=== PATIENT | female | born 2005 | race Two or more races ===

== ENCOUNTER 2025-05-28 19:21 | Emergency (ER) | payer MEDICAID, SELFPAY ==
[2025-05-28 19:39] VITALS: BP 126/86; PULSE 91; RESP 18; TEMP 36.8; O2SAT 99
--- NOTE | 2025-05-28 19:49 | EDNOTE_ITS ---
ED Allergic Reaction RME/HPI General Chief complaint: Allergic Reaction Stated complaint: itchy rash all over Time Seen by Provider: 05/28/25 19:23 Arrival date/time: 05/28/25 19:21 This is a case of a 19-year-old female who came in the emergency room due to generalized urticarial rashes on his neck chest abdomen back both upper extremities and both lower extremities for 2 days patient took Benadryl but no relief due to worsening of the symptoms this patient decided to sought consult here in the emergency room denies any shortness of breath no swelling of the face or throat Limitations: no limitations Related Data Previous Rx's ?Medication ?Instructions ?Recorded azithromycin 250 mg tablet See Rx Instructions PO .COM PLEX #6 12/27/19 tabs ibuprofen 400 mg tablet 400 mg PO Q6H PRN fever or p ain 12/27/19 #10 tabs diphenhydramine HCl 25 mg capsule 25 mg PO TID PRN all ergic reaction 05/28/25 (Benadryl) #20 caps famotidine 20 mg tablet 20 mg PO BID 5 days #10 tabs 05/28/25 prednisone 20 mg tablet See Taper PO QDAY 5 days #5 tabs 05/28/25 Allergies Allergy/AdvReac Type Severity Reaction Status Date / Time No Known Allergies Allergy Verified 05/28/25 19:26 Review of Systems Review of Systems Systems Reviewed: All systems reviewed, normal except as documented Constitutional Constitutional: Reports system reviewed and no additional complaints, except as documented and Reports as per HPI ENT Ears, Nose, Mouth, and Throat: Reports system reviewed and no additional complaints, except as documented and Reports as per HPI Cardiovascular Cardiovascular: Reports system reviewed and no additional complaints, except as documented and Reports as per HPI Respiratory Respiratory: Reports system reviewed and no additional complaints, except as documented and Reports as per HPI Gastrointestinal Gastrointestinal: Reports system reviewed and no additional complaints, except as documented and Reports as per HPI Genitourinary Genitourinary: Reports system reviewed and no additional complaints, except as documented and Reports as per HPI Musculoskeletal Musculoskeletal: Reports system reviewed and no additional complaints, except as documented and Reports as per HPI Integumentary/Breasts Skin/Breast: Reports other (Rash) Neurologic Neurologic: Reports system reviewed and no additional complaints, except as documented and Reports as per HPI Past Medical History Past Medical History NEUROLOGIC: Negative Seizures CARDIAC: Negative Cardiac Disorders or Congestive Heart Failure RESPIRATORY: Negative Chronic Obstructive Pulmonary Disease (COPD) or Asthma GENITOURINARY: Negative Renal Disease ENDOCRINE: Negative Diabetes Mellitus Type 1 or Diabetes Mellitus Type 2 HEMATOLOGIC: Negative Sickle Cell Disease OTHER HISTORY: Negative Blood Transfusions, Blood Transfusion Reaction or Anesthesia Reactions Social History SMOKING STATUS: Never smoker SECOND HAND EXPOSURE: No SUBSTANCE USE: does not use ED Exam General Limitations: Present no limitations General appearance: Present alert and in no apparent distress Head Head exam: Present atraumatic, normocephalic and normal inspection Eye Eye exam: Present normal appearance, PERRL and EOMI ENT ENT exam: Present normal exam, normal oropharynx, mucous membranes moist and other (HEENT exam is normal no drooling of saliva no facial or throat swelling) Neck Neck exam: Present normal inspection, full ROM and trachea midline; Absent tenderness, meningismus, lymphadenopathy or thyromegaly Chest Chest inspection: Present normal inspection, symmetric chest wall rise and rash; Absent tenderness or abscess Respiratory Respiratory exam: Present normal lung sounds bilaterally; Absent respiratory distress, wheezes, stridor, accessory muscle use or prolonged expiratory phase Cardiovascular Cardiovascular exam: Present regular rate, normal rhythm and normal heart sounds; Absent bradycardia, tachycardia, irregular rhythm, systolic murmur or diastolic murmur Abdominal Exam Abdominal exam: Present soft and normal bowel sounds; Absent distention, tenderness, guarding, rebound or rigidity Extremities Exam Extremities exam: Present normal inspection and full ROM Back Exam Back exam: Present normal inspection and full ROM Neurological Exam Neurological exam: Present alert, oriented X3, CN II-XII intact, normal gait and reflexes normal; Absent motor sensory deficit Psychiatric Psychiatric exam: Present normal affect and normal mood Skin Skin exam: Present warm, dry, intact, normal color and other (Noted a urticarial generalized rash chest on chest abdomen back both upper extremities both lower extremities no cellulitis no abscess nonblanching rash) Course Quality Measures none Orders Category Date Time Status Dexamethasone Inj [Decadron Inj] Med 05/28/25 19:43 Discontinued 10 mg IM X1 ONE DiphenhydrAMINE INJ [Benadryl Inj] Med 05/28/25 19:43 Discontinued 25 mg IM X1 ONE Famotidine [Pepcid] Med 05/28/25 19:43 Discontinued 40 mg PO X1 ONE Vital Signs Vital signs: Vital Signs Temperature 98.2 F 05/28/25 19:39 Pulse Rate 91 05/28/25 19:39 Respiratory Rate 18 05/28/25 19:39 Blood Pressure 126/86 H 05/28/25 19:39 Pulse Oximetry (%) 99 05/28/25 19:39 Oxygen Delivery Method Room Air 05/28/25 19:39 Oxygen saturation is 99% in room Allergic Reaction MDM Narrative MDM Narrative:: This is a case of a 19-year-old female who came in the emergency room due to generalized urticarial rashes on his neck chest abdomen back both upper extremities and both lower extremities for 2 days patient took Benadryl but no relief due to worsening of the symptoms this patient decided to sought consult here in the emergency room denies any shortness of breath no swelling of the face or throat physical examination patient is awake alert oriented not in distress nontoxic looking afebrile not tachycardic not tachypneic not hypoxic lungs sound is clear no crackles no rales no retraction no stridor HEENT exam is normal and unremarkable no throat or facial swelling no drooling of saliva skin exam showed Noted a urticarial generalized rash chest on chest abdomen back both upper extremities both lower extremities no cellulitis no abscess nonblanching rash at the time of exam no signs and symptoms of angioedema or anaphylaxis patient was given Benadryl dexamethasone and Pepcid for allergy cocktail patient condition markedly improved patient was observed for 30 minutes after 30 minutes rash is subsided no shortness of breath no facial or throat swelling patient will be discharged home in stable condition she was informed to follow-up with PCP to be referred to military equipment specialist for allergy testing and beam machine operator if symptoms persist for any recurrence persistent worsening symptoms she will return in the emergency room immediately or call 911 patient was prescribed with prednisone Pepcid and Benadryl Patient was discharged with comfortable condition walking with stable gait. Patient verbalized no further complains explained diagnosis and answered patient question. Patient is comfortable with the proposed management plan including the need to follow up with his/her primary care physician and any specialist if applicable Discussed patient for any urgent condition or worsening sx, He/She needed to go to emergency room immediately or call 911. Patient acknowledge the responsibility to follow up as instructed and to monitor her/his symptoms. For any persistence of the symptoms for more than 3-5 days return precaution advised. Discussed the result of the test and was given printed discharge instruction Patient data External records reviewed:: [facility] previous records Clinical information provided by:: patient Social determinants that could affect healthcare access:: none Patient has the following chronic illnesses:: None How is presenting disease/condition affected by chronic disease/condition?: no chronic disease Evaluation data The following diagnostics were reviewed and interpreted by me:: other (specify) Lab and/or radiology exams considered but not ordered:: None Interpretation Summary: None Medications / Prescriptions Medications or Prescriptions considered but not ordered:: Given Medication administrations:: Medication Administration History Discontinued Medications Dexamethasone Sodium Phosphate (Dexamethasone Sod Phos Inj 10 Mg/Ml Vial) 10 mg IM X1 ONE Stop: 05/28/25 19:44 Diphenhydramine HCl (Diphenhydramine Inj 50 Mg/Ml Vial) 25 mg IM X1 ONE Stop: 05/28/25 19:44 Famotidine (Famotidine 20 Mg Tablet) 40 mg PO X1 ONE Stop: 05/28/25 19:44 Given Consultations Consultation(s) initiated? (list below): No Diagnosis Differential Diagnosis allergic reaction: allergic reaction and contact dermatitis Most likely diagnosis given after review of the tests above:: Allergic urticaria Admission Indicated Admission indicated?: not indicated Explain why admission is indicated or not indicated:: Not indicated Admission Request Was there a request for admission?: No Admission Attestation Admission request attestation: Not indicated Disposition Plan Disposition Plan: Discharge Discharge Attestation Discharge Attestation: The patient and all family members were given an opportunity to ask questions and understood the discharge instructions. Discharge instructions specifically effects, indications for sooner follow up or return to the emergency department, and the expected course of current diagnosis. Patient condition: Stable Discharge Plan Plan Patient Disposition: HOME (Self Care) Patient condition on transfer: Stable Prescriptions/Referrals Prescriptions/Med Rec: New diphenhydramine HCl [Benadryl] 25 mg capsule 25 mg PO TID PRN (Reason: allergic reaction) Qty: 20 0RF prednisone 20 mg tablet See Taper PO QDAY 5 Days Qty: 5 0RF Taper: Prednisone Taper 20 mg DAILY for 2 Days and 0 Hour 10 mg DAILY for 2 Days and 0 Hour 5 mg DAILY for 7 Days and 0 Hour famotidine 20 mg tablet 20 mg PO BID 5 Days Qty: 10 0RF No Action azithromycin 250 mg tablet See Rx Instructions .ROUTE .COMPLEX Qty: 6 0RF Rx Instructions: take 500 mg today (day 1), then 250 mg for 4 days (days 2-5) ibuprofen 400 mg tablet 400 mg PO Q6H PRN (Reason: fever or pain) Qty: 10 0RF Problem List Clinical Impression: Allergic urticaria Patient/Caregiver Discharge Instructions Education Materials: ED Hives (Adult) Additional Instructions: Follow-up with your primary care physician in 2 days for reevaluation and to be referred to military equipment specialist for allergy testing and if there is recurrent persistent rash need to be referred also to a beam machine operator for further evaluation and treatment recurrent persistent worsening symptoms or any emergent concern return to the emergency room immediately or call 911 take your medication as directed use hypoallergenic soap and hypoallergenic laundry soap is advised Print Language: Icelandic Stand Alone Forms: [employer] Award Info., Patient Portal Info Letter JESUS/DENEEN Supervising Physician JESUS/DENEEN Supervising Physician: dr nieves
[2025-05-28] MEDS: FAMOTIDINE 20 MG TABLET 40 MG PO (20:02)
[2025-05-28] MEDS: DEXAMETHASONE SOD PHOS INJ 10 MG/ML VIAL IM (20:02)
== END 2025-05-28 20:23 | disposition home or self-care (01) ==
LOC: SERX 20:01
PROVIDERS: Emergency Provider Emergency Medicine; PCP Family Medicine
DX: L50.0 Allergic urticaria (principal)
CPT/HCPCS: 96372; 99283; J1100; J1200; A9270

== ENCOUNTER 2025-05-29 23:31 | Emergency (ER) | payer MEDICAID, SELFPAY ==
[2025-05-29 23:32] VITALS: BMI 25.6
[2025-05-29 23:34] VITALS: BP 115/76; PULSE 102; RESP 19; TEMP 36.8; O2SAT 97
--- NOTE | 2025-05-29 23:55 | EDNOTE_ITS ---
ED Allergic Reaction RME/HPI General Chief complaint: Allergic Reaction Stated complaint: ALLERGIC REACTION Time Seen by Provider: 05/29/25 23:50 Source: patient and family Arrival date/time: 05/29/25 23:31 This is a case of a 19-year-old female who came into the emergency room due to generalized urticarial rashes today patient was seen here with the same symptoms and was given Benadryl dexamethasone and Pepcid which condition of the patient improved mother states that they were not able to get the medication that was prescribed yesterday recurrence of the symptoms this patient mother decided to bring patient here in the emergency room Limitations: no limitations Related Data Previous Rx's ?Medication ?Instructions ?Recorded azithromycin 250 mg tablet See Rx Instructions PO .COM PLEX #6 12/27/19 tabs ibuprofen 400 mg tablet 400 mg PO Q6H PRN fever or p ain 12/27/19 #10 tabs diphenhydramine HCl 25 mg capsule 25 mg PO TID PRN all ergic reaction 05/28/25 (Benadryl) #20 caps famotidine 20 mg tablet 20 mg PO BID 5 days #10 tabs 05/28/25 prednisone 20 mg tablet See Taper PO QDAY 5 days #5 tabs 05/28/25 Allergies Allergy/AdvReac Type Severity Reaction Status Date / Time No Known Allergies Allergy Verified 05/29/25 23:36 Review of Systems Review of Systems Systems Reviewed: All systems reviewed, normal except as documented Constitutional Constitutional: Reports system reviewed and no additional complaints, except as documented and Reports as per HPI Cardiovascular Cardiovascular: Reports system reviewed and no additional complaints, except as documented and Reports as per HPI Respiratory Respiratory: Reports system reviewed and no additional complaints, except as documented and Reports as per HPI Musculoskeletal Musculoskeletal: Reports system reviewed and no additional complaints, except as documented and Reports as per HPI Integumentary/Breasts Skin/Breast: Reports other (Rash) Neurologic Neurologic: Reports system reviewed and no additional complaints, except as documented and Reports as per HPI Past Medical History Past Medical History NEUROLOGIC: Negative Seizures CARDIAC: Negative Cardiac Disorders or Congestive Heart Failure RESPIRATORY: Negative Chronic Obstructive Pulmonary Disease (COPD) or Asthma GENITOURINARY: Negative Renal Disease ENDOCRINE: Negative Diabetes Mellitus Type 1 or Diabetes Mellitus Type 2 HEMATOLOGIC: Negative Sickle Cell Disease OTHER HISTORY: Negative Blood Transfusions, Blood Transfusion Reaction or Anesthesia Reactions Social History SMOKING STATUS: Never smoker SECOND HAND EXPOSURE: No SUBSTANCE USE: does not use ED Exam General Limitations: Present no limitations General appearance: Present alert and in no apparent distress Head Head exam: Present atraumatic Eye Eye exam: Present normal appearance, PERRL and EOMI ENT ENT exam: Present normal exam, normal oropharynx and mucous membranes moist Neck Neck exam: Present normal inspection, full ROM and trachea midline Chest Chest inspection: Present normal inspection and symmetric chest wall rise; Absent tenderness, rash or abscess Respiratory Respiratory exam: Present normal lung sounds bilaterally; Absent respiratory distress, wheezes, stridor, accessory muscle use or prolonged expiratory phase Cardiovascular Cardiovascular exam: Present regular rate, normal rhythm and normal heart sounds; Absent bradycardia, tachycardia, irregular rhythm, systolic murmur or diastolic murmur Abdominal Exam Abdominal exam: Present soft and normal bowel sounds Extremities Exam Extremities exam: Present normal inspection and full ROM Back Exam Back exam: Present normal inspection and full ROM Neurological Exam Neurological exam: Present alert, oriented X3, CN II-XII intact, normal gait and reflexes normal; Absent motor sensory deficit Psychiatric Psychiatric exam: Present normal affect and normal mood Skin Skin exam: Present warm, dry, intact, normal color and other (Patient noted to have a generalized urticarial rash on the chest abdomen both upper extremities both lower extremities and back no abscess no cellulitis) Course Quality Measures none Orders Category Date Time Status Dexamethasone Inj [Decadron Inj] Med 05/29/25 23:53 Once 10 mg IM X1 ONE DiphenhydrAMINE INJ [Benadryl Inj] Med 05/29/25 23:53 Once 25 mg IM X1 ONE Famotidine [Pepcid] Med 05/29/25 23:53 Once 40 mg PO X1 ONE Vital Signs Vital signs: Vital Signs Temperature 98.2 F 05/29/25 23:34 Pulse Rate 102 H 05/29/25 23:34 Respiratory Rate 19 05/29/25 23:34 Blood Pressure 115/76 05/29/25 23:34 Pulse Oximetry (%) 97 05/29/25 23:34 Oxygen Delivery Method Room Air 05/29/25 23:34 Allergic Reaction MDM Narrative MDM Narrative:: This is a case of a 19-year-old female who came into the emergency room due to generalized urticarial rashes today patient was seen here with the same symptoms and was given Benadryl dexamethasone and Pepcid which condition of the patient improved mother states that they were not able to get the medication that was prescribed yesterday recurrence of the symptoms this patient mother decided to bring patient here in the emergency room physical examination patient is awake alert oriented not in distress nontoxic looking no signs and symptoms of anaphylaxis no angioedema no facial swelling no throat swelling clear breath sounds patient noted to have urticarial rashes on chest abdomen pelvis both upper extremities both lower extremities at this point patient will be treated as allergic urticaria patient was given Benadryl dexamethasone and Pepcid patient was observed for 30 minutes the rash has subsided still no shortness of breath no swelling at this point patient will be discharged with stable condition she was advised to follow-up with PCP to be referred to equipment application specialist for allergy testing and she will continue the medication that was prescribed yesterday Patient was discharged with comfortable condition walking with stable gait. Patient verbalized no further complains explained diagnosis and answered patient question. Patient is comfortable with the proposed management plan including the need to follow up with his/her primary care physician and any specialist if applicable Discussed patient for any urgent condition or worsening sx, He/She needed to go to emergency room immediately or call 911. Patient acknowledge the responsibility to follow up as instructed and to monitor her/his symptoms. For any persistence of the symptoms for more than 3-5 days return precaution advised. Discussed the result of the test and was given printed discharge instruction Patient data External records reviewed:: [facility] previous records Clinical information provided by:: patient and family Social determinants that could affect healthcare access:: none Patient has the following chronic illnesses:: None How is presenting disease/condition affected by chronic disease/condition?: no chronic disease Evaluation data The following diagnostics were reviewed and interpreted by me:: other (specify) Lab and/or radiology exams considered but not ordered:: None Interpretation Summary: None Medications / Prescriptions Medications or Prescriptions considered but not ordered:: Given Medication administrations:: Medication Administration History Dexamethasone Sodium Phosphate (Dexamethasone Sod Phos Inj 10 Mg/Ml Vial) 10 mg IM X1 ONE Stop: 05/29/25 23:54 Diphenhydramine HCl (Diphenhydramine Inj 50 Mg/Ml Vial) 25 mg IM X1 ONE Stop: 05/29/25 23:54 Famotidine (Famotidine 20 Mg Tablet) 40 mg PO X1 ONE Stop: 05/29/25 23:54 Given Consultations Consultation(s) initiated? (list below): No Diagnosis Differential Diagnosis allergic reaction: allergic reaction Most likely diagnosis given after review of the tests above:: Allergic urticaria Admission Indicated Admission indicated?: not indicated Explain why admission is indicated or not indicated:: Not indicated Admission Request Was there a request for admission?: No Admission Attestation Admission request attestation: Not indicated Disposition Plan Disposition Plan: Discharge Discharge Attestation Discharge Attestation: The patient and all family members were given an opportunity to ask questions and understood the discharge instructions. Discharge instructions specifically effects, indications for sooner follow up or return to the emergency department, and the expected course of current diagnosis. Patient condition: Stable Discharge Plan Plan Patient Disposition: HOME (Self Care) Patient condition on transfer: Stable Prescriptions/Referrals Prescriptions/Med Rec: No Action azithromycin 250 mg tablet See Rx Instructions .ROUTE .COMPLEX Qty: 6 0RF Rx Instructions: take 500 mg today (day 1), then 250 mg for 4 days (days 2-5) ibuprofen 400 mg tablet 400 mg PO Q6H PRN (Reason: fever or pain) Qty: 10 0RF diphenhydramine HCl [Benadryl] 25 mg capsule 25 mg PO TID PRN (Reason: allergic reaction) Qty: 20 0RF prednisone 20 mg tablet See Taper PO QDAY 5 Days Qty: 5 0RF Taper: Prednisone Taper 20 mg DAILY for 2 Days and 0 Hour 10 mg DAILY for 2 Days and 0 Hour 5 mg DAILY for 7 Days and 0 Hour famotidine 20 mg tablet 20 mg PO BID 5 Days Qty: 10 0RF Problem List Clinical Impression: Allergic urticaria Patient/Caregiver Discharge Instructions Education Materials: ED Hives (Adult) Additional Instructions: Follow-up with your primary care physician in 2 days for reevaluation regarding his persistent worsening symptoms or any emergent concern call 911 or go to the nearest emergency room continue the medication that was prescribed yesterday use hypoallergenic soap and hypoallergenic laundry soap is advised this is very important to see the equipment application specialist for allergy testing and sweetbread trimmer for recurrence of rash Print Language: [place] Stand Alone Forms: [employer] Award Info., Patient Portal Info Letter PA/DENEEN Supervising Physician PA/DENEEN Supervising Physician: dr cheatham
[2025-05-30] MEDS: FAMOTIDINE 20 MG TABLET 40 MG PO (00:12)
[2025-05-30] MEDS: DEXAMETHASONE SOD PHOS INJ 10 MG/ML VIAL IM (00:14)
== END 2025-05-30 00:24 | disposition home or self-care (01) ==
LOC: SERX 05-30 00:22
PROVIDERS: Emergency Provider Emergency Medicine; PCP Family Medicine
DX: L50.0 Allergic urticaria (principal)
CPT/HCPCS: 96372; 99283; J1100; J1200; A9270